=== PATIENT | female | born 1965 | race American Indian/Alaskan Native ===

== ENCOUNTER 2016-10-24 12:05 | Observation (INO) | payer OTHER ==
[2016-10-24 12:05] VITALS: BMI 41.7
[2016-10-24 13:25] LABS: BASO % 0.2 % (0.0-2.0); CHLORIDE 98 mmol/L (98-107); EOS # 0.1 K/uL (0.0-0.7); EOS % 2.2 % (0.0-4.0); HEMATOCRIT 40.9 % (34.0-47.0); LYMPH # 1.2 K/uL (1.0-4.3); LYMPH % 18.2 % (20.0-40.0); MEAN CORPUSCULAR HEMOGLOBIN 27.3 pg (27.0-31.0); MEAN CORPUSCULAR HGB CONC 31.9 g/dL (33.0-37.0); MONO # 0.4 K/uL (0.0-0.8); MONO % 6.1 % (0.0-10.0); NRBC % 0.1 % (0.0-2.0); RED CELL DISTRIBUTION WIDTH 15.6 % (11.5-14.5); WHITE BLOOD COUNT 6.7 K/uL (4.8-10.8)
[2016-10-24 13:26] LABS: MEAN CELL VOLUME 85.7 fL (81.0-99.0); SODIUM 138 mmol/L (132-148)
[2016-10-24 13:28] LABS: ALKALINE PHOSPHATASE 94 U/L (38-126); AST/SGOT 22 U/L (14-36); BILIRUBIN,TOTAL 0.6 mg/dL (0.2-1.3); CARBON DIOXIDE 28 mmol/L (22-30); GFR AFRICAN-AMERICAN > 60; TOTAL PROTEIN 7.5 g/dL (6.3-8.3)
[2016-10-24 13:29] LABS: ALT/SGPT 29 U/L (9-52); BLOOD UREA NITROGEN 10 mg/dL (7-17); CALCIUM 9.9 mg/dl (8.6-10.4); GLUCOSE,RANDOM 316 mg/dL (65-105)
[2016-10-24 13:48] LABS: POTASSIUM 4.3 mmol/L (3.6-5.2)
[2016-10-24] MEDS ORDERED: (Novolin R) Insulin Human Regular 100 units/ml vial IV ONE (13:50)
[2016-10-24 13:53] LABS: RBC URINE 1 /hpf (0-3); URINE BILIRUBIN NEGATIVE (NEGATIVE); URINE BLOOD NEGATIVE (NEGATIVE); URINE COLOR Straw (YELLOW); URINE GLUCOSE (UA) 3+ mg/dL (Normal); URINE KETONE 1+ mg/dL (NEGATIVE); URINE LEUKOCYTE ESTERASE NEG Leu/uL (Negative); URINE PROTEIN NEGATIVE (NEGATIVE); URINE UROBILINOGEN NORMAL mg/dL (0.2-1.0); WBC URINE < 1 /hpf (0-5)
[2016-10-24] MEDS ORDERED: (Novolin R) Insulin Human Regular 100 units/ml vial ONE (14:04)
--- NOTE | 2016-10-24 14:12 | RAD ---
PROCEDURE: CHEST RADIOGRAPH, 1 VIEW HISTORY: cp COMPARISON: Comparison made with prior chest radiograph dated 12/01/2012 FINDINGS: LUNGS: Poor inspiration with low lung volumes, crowded bronchovascular markings and mild bibasilar atelectasis. . Note that the left CP angle is not sharply marginated which may be secondary to large body habitus. PLEURA: No pneumothorax or pleural fluid seen. CARDIOVASCULAR: Normal. OSSEOUS STRUCTURES: No significant abnormalities. VISUALIZED UPPER ABDOMEN: Normal. OTHER FINDINGS: None. IMPRESSION: Poor inspiration with low lung volumes, crowded bronchovascular markings and mild bibasilar atelectasis. . Note that the left CP angle is not sharply marginated which may be secondary to large body habitus.
--- NOTE | 2016-10-24 14:26 | C.PDOC ---
History Of Present Illness 51 y/o female presents to the ED complaining of sharp left-sided chest pain, constant since yesterday. Pain is described as radiating to the abdomen, and worsens with deep inspiration and when lying down. She denies cough, fever, palpitations, vomiting, and diarrhea. PMD: Darwin Germain Time Seen by Provider: 10/24/16 12:42 Chief Complaint (Nursing): Chest Pain History Per: Patient History/Exam Limitations: no limitations Onset/Duration Of Symptoms: Days (x 2) Current Symptoms Are (Timing): Still Present Severity: Mild Exacerbating Factors: Deep Breathing, Other (Lying down) Past Medical History Reviewed: Historical Data, Nursing Documentation, Vital Signs Vital Signs: Last Vital Signs Temp 98 F 10/26/16 15:15 Pulse 81 10/26/16 15:15 Resp 20 10/26/16 15:15 BP 102/65 10/26/16 15:15 Pulse Ox 97 10/26/16 15:15 - Medical History PMH: HTN Family History: States: No Known Family Hx - Social History Hx Alcohol Use: No Hx Substance Use: No - Immunization History Hx Tetanus Toxoid Vaccination: No Hx Influenza Vaccination: Yes Hx Pneumococcal Vaccination: No Review Of Systems Except As Marked, All Systems Reviewed And Found Negative. Constitutional: Negative for: Fever Cardiovascular: Positive for: Chest Pain (Left-sided, constant). Negative for: Palpitations Respiratory: Negative for: Cough, Shortness of Breath Gastrointestinal: Negative for: Nausea, Vomiting, Abdominal Pain, Diarrhea Skin: Negative for: Rash Physical Exam - Physical Exam Appears: Well, Non-toxic, Other (Mild pain, speaking in full sentences) Skin: Normal Color, Warm, Dry Eye(s): bilateral: Normal Inspection Oral Mucosa: Moist Neck: Supple Chest: Symmetrical Cardiovascular: Rhythm Regular, No Murmur Respiratory: Normal Breath Sounds, No Rales, No Rhonchi, No Wheezing Gastrointestinal/Abdominal: Bowel Sounds, Soft, Tenderness (tenderness at the epigastric and LUQ area), No Guarding, No Rebound, Other ((-) Frias's) Back: Normal Inspection, No CVA Tenderness Extremity: Normal ROM, No Pedal Edema, No Deformity Neurological/Psych: Oriented x3 Gait: Steady ED Course And Treatment - Laboratory Results Result Diagrams: 10/24/16 13:09 10/24/16 13:09 ECG: Interpreted By Me, Viewed By Me Interpretation Of ECG: Normal Sinus Rhythm with Left axis deviation, no acute ST /T changes. O2 Sat by Pulse Oximetry: 99 (RA) Pulse Ox Interpretation: Normal - Radiology CXR: Viewed By Me, Read By Radiologist CXR Interpretation: Yes: Other (IMPRESSION: Poor inspiration with low lung volumes, crowded bronchovascular markings and mild bibasilar atelectasis. Note that the left CP angle is not sharply marginated which may be secondary to large body habitus.) - Other Rad ABD XRAY X-Ray: Interpreted by Me, Viewed By Me (no air fluid levels) Progress Note: 12:54. Initial Plan: Blood work, EKG, and CXR ordered and reviewed. Patient given IV NS bolus IV pepcid, IV zofran and IV insulin. Pending reevaluation and disposition. - Physician Consult Information Physician Contacted: Kera Gallardo Outcome Of Conversation: Discussed patient with Dr. Reinier Gallardo, he agrees with admission for chest pain r/o ACS, hypoglycemia. Disposition - Disposition Disposition: HOSPITALIZED Disposition Time: 14:29 Condition: STABLE - Clinical Impression Clinical Impression: Hypoglycemia, Chest pain - Scribe Statement The provider has reviewed the documentation as recorded by the Scribe Madhavi Kahn All medical record entries made by the Scribe were at my direction and personally dictated by me. I have reviewed the chart and agree that the record accurately reflects my personal performance of the history, physical exam, medical decision making, and the department course for this patient. I have also personally directed, reviewed, and agree with the discharge instructions and disposition. Decision To Admit - Pt Status Changed To: Hospital Disposition Of: Observation - . Bed Request Type: Telemetry Admitting Physician: Kera Gallardo Patient Diagnosis: Chest pain, Hypoglycemia
[2016-10-24] MEDS ORDERED: Magnesium Citrate Oral SOL (300 ml) PO ONE ×2 (16:11→17:45)
--- NOTE | 2016-10-24 16:24 | RAD ---
HISTORY: ABDOMINAL DISTENSION COMPARISON: No prior. FINDINGS: BOWEL: Unremarkable abdominal bowel gas pattern. No evidence of bowel obstruction. No hepatic or splenic enlargement. No masses or abnormal calcifications. No free intraperitoneal air. BONES: Normal. OTHER FINDINGS: None. IMPRESSION: No evidence of bowel obstruction.
--- NOTE | 2016-10-24 18:54 | CP.PCM.HP ---
Past Patient History - Past Social History Smoking Status: Never Smoked - CARDIAC Hx Hypertension: Yes - ENDOCRINE/METABOLIC Hx Endocrine Disorders: Yes Hx Diabetes Mellitus Type 2: Yes - HEMATOLOGICAL/ONCOLOGICAL Hx Blood Disorders: Yes Other/Comment: UTERINE CANCER - PSYCHIATRIC Hx Substance Use: No - SURGICAL HISTORY Hx Surgeries: Yes Hx Section: Yes Hx Hysterectomy: Yes - ANESTHESIA Hx Anesthesia: Yes Hx Anesthesia Reactions: No Hx Malignant Hyperthermia: No Meds Allergies/Adverse Reactions: Allergies Allergy/AdvReac Type Severity Reaction Status Date / Time ibuprofen [From Motrin] Allergy DIZZINESS Verified 10/24/16 12:17 Penicillins Allergy ITCHING Verified 10/24/16 12:17 Physical Exam - Constitutional Appears: Well - Head Exam Head Exam: ATRAUMATIC, NORMAL INSPECTION, NORMOCEPHALIC - Eye Exam Eye Exam: EOMI, Normal appearance, PERRL Pupil Exam: NORMAL ACCOMODATION, PERRL - ENT Exam ENT Exam: Mucous Membranes Moist, Normal Exam - Neck Exam Neck exam: Positive for: Normal Inspection - Respiratory Exam Respiratory Exam: Decreased Breath Sounds - Cardiovascular Exam Cardiovascular Exam: REGULAR RHYTHM, +S1, +S2 - GI/Abdominal Exam GI & Abdominal Exam: Diminished Bowel Sounds, Soft - Rectal Exam Rectal Exam: Deferred Results - Vital Signs Recent Vital Signs: Last Vital Signs Temp 97.9 F 10/24/16 17:21 Pulse 80 10/24/16 17:21 Resp 18 10/24/16 17:21 BP 133/85 10/24/16 17:21 Pulse Ox 97 10/24/16 17:21 - Labs Result Diagrams: 10/24/16 13:09 10/24/16 13:09 Labs: Laboratory Results - last 24 hr 10/24/16 15:53 POC Glucose (mg/dL) 267 H
[2016-10-24] MEDS ORDERED: Pneumococcal 23-Valent Vaccine IM ONE (20:09)
[2016-10-24] MEDS ORDERED: Influenza Virus Vaccine 45 mcg/0.5 ml Syr IM ONE (20:09)
--- NOTE | 2016-10-25 07:29 | CP.PCM.PN ---
Objective - Vital Signs/Intake and Output Vital Signs (last 24 hours): Temp Pulse Resp BP Pulse Ox 98.2 F 95 H 18 94/53 L 100 10/24/16 23:58 10/24/16 23:58 10/24/16 23:58 10/24/16 23:58 10/24/16 23:58 Intake and Output: 10/25/16 10/25/16 06:59 18:59 Intake Total 560 Balance 560 - Medications Medications: Current Medications Aspirin (Aspirin Chewable) 81 mg PO DAILY [facility] Glyburide (Micronase) 5 mg PO DAILY [facility] Hydrochlorothiazide (Microzide) 12.5 mg PO DAILY [facility] Losartan Potassium (Cozaar) 100 mg PO DAILY [facility] Metformin HCl (Glucophage) 1,000 mg PO BID [facility] Last Admin: 10/24/16 18:07 Dose: 1,000 mg Pantoprazole Sodium (Protonix Ec Tab) 40 mg PO DAILY [facility] Rosuvastatin Calcium (Crestor) 5 mg PO HS [facility] Last Admin: 10/24/16 22:10 Dose: 5 mg - Labs Labs: PT 11.0 SECONDS (9.7-12.2) 10/24/16 13:09 INR 1.0 10/24/16 13:09 APTT 31 SECONDS (21-34) 10/24/16 13:09
--- NOTE | 2016-10-25 07:45 | CP.PCM.CON ---
History of Present Illness - History of Present Illness History of Present Illness: consultation request for evaluation of chest pain HPI: 51-year-old -[place] female with past medical history significant for hypertension dyslipidemia and diabetes mellitus presenting with complaints of sharp left-sided chest pain. According to the patient she described the pain as intermittent in nature worse with movement associated with mild shortness of breath. She started having symptoms last Monday and got progressively worse over the weekend for which she came to the emergency room. Initially she felt the pain would resolve on its own but because the intensity was getting worse she got concerned and came to the emergency room. Review of Systems - Review of Systems All systems: reviewed and no additional remarkable complaints except - Constitutional Constitutional: As Per HPI - EENT Eyes: As Per HPI Ears: As Per HPI Nose/Mouth/Throat: As Per HPI - Breasts Breasts: As Per HPI - Cardiovascular Cardiovascular: As Per HPI, Chest Pain, Chest Pain at Rest, Chest Pain with Activity, Dyspnea - Respiratory Respiratory: As Per HPI - Gastrointestinal Gastrointestinal: As Per HPI - Genitourinary Genitourinary: As Per HPI - Reproductive: Female Reproductive:Female: As Per HPI - Menstruation Menstruation: As Per HPI - Musculoskeletal Musculoskeletal: As Per HPI - Integumentary Integumentary: As Per HPI - Neurological Neurological: As Per HPI - Psychiatric Psychiatric: As Per HPI - Endocrine Endocrine: As Per HPI - Hematologic/Lymphatic Hematologic: As Per HPI Past Patient History - Past Medical History & Family History Past Medical History?: Yes Pertinent Family History: positive for hypertension and diabetes mellitus - Past Social History Smoking Status: Never Smoked - CARDIAC Hx Hypertension: Yes - PULMONARY Hx Respiratory Disorders: No - NEUROLOGICAL Hx Neurological Disorder: No - HEENT Hx HEENT Problems: No - RENAL Hx Chronic Kidney Disease: No - ENDOCRINE/METABOLIC Hx Endocrine Disorders: Yes Hx Diabetes Mellitus Type 2: Yes - HEMATOLOGICAL/ONCOLOGICAL Hx Blood Disorders: Yes Other/Comment: UTERINE CANCER - INTEGUMENTARY Hx Dermatological Problems: No - MUSCULOSKELETAL/RHEUMATOLOGICAL Hx Musculoskeletal Disorders: No Hx Falls: No - GASTROINTESTINAL Hx Gastrointestinal Disorders: No - GENITOURINARY/GYNECOLOGICAL Hx Genitourinary Disorders: No - PSYCHIATRIC Hx Substance Use: No - SURGICAL HISTORY Hx Surgeries: Yes Hx Section: Yes Hx Hysterectomy: Yes - ANESTHESIA Hx Anesthesia: Yes Hx Anesthesia Reactions: No Hx Malignant Hyperthermia: No Meds Home Medications: Home Medication List Medication Instructions Recorded Confirmed Type Aspirin [Aspirin Chewable] 81 mg PO DAILY #30 10/26/16 Rx Metoprolol Succinate XL [Toprol XL] 12.5 mg PO BRK #30 tab 10/26/16 Rx traMADol [Ultram] 50 mg PO Q6 PRN #10 tab 10/26/16 Rx Allergies/Adverse Reactions: Allergies Allergy/AdvReac Type Severity Reaction Status Date / Time ibuprofen [From Motrin] Allergy DIZZINESS Verified 10/24/16 12:17 Penicillins Allergy ITCHING Verified 10/24/16 12:17 - Medications Medications: Current Medications Aspirin (Aspirin Chewable) 81 mg PO DAILY [facility] Glyburide (Micronase) 5 mg PO DAILY [facility] Hydrochlorothiazide (Microzide) 12.5 mg PO DAILY [facility] Losartan Potassium (Cozaar) 100 mg PO DAILY [facility] Metformin HCl (Glucophage) 1,000 mg PO BID [facility] Last Admin: 10/24/16 18:07 Dose: 1,000 mg Pantoprazole Sodium (Protonix Ec Tab) 40 mg PO DAILY [facility] Rosuvastatin Calcium (Crestor) 5 mg PO HS [facility] Last Admin: 10/24/16 22:10 Dose: 5 mg Physical Exam - Constitutional Appears: Well - Head Exam Head Exam: ATRAUMATIC, NORMAL INSPECTION, NORMOCEPHALIC - Eye Exam Eye Exam: EOMI, Normal appearance, PERRL Pupil Exam: NORMAL ACCOMODATION, PERRL - ENT Exam ENT Exam: Mucous Membranes Moist, Normal Exam - Neck Exam Neck exam: Positive for: Normal Inspection - Respiratory Exam Respiratory Exam: Clear to Auscultation Bilateral, NORMAL BREATHING PATTERN - Cardiovascular Exam Cardiovascular Exam: REGULAR RHYTHM, +S1, +S2, Systolic Murmur - GI/Abdominal Exam GI & Abdominal Exam: Normal Bowel Sounds, Soft. absent: Tenderness - Extremities Exam Extremities exam: Positive for: normal inspection - Back Exam Back exam: NORMAL INSPECTION - Neurological Exam Neurological exam: Alert, CN II-XII Intact, Normal Gait, Oriented x3, Reflexes Normal - Psychiatric Exam Psychiatric exam: Normal Affect, Normal Mood - Skin Skin Exam: Dry, Intact, Normal Color, Warm Results - Vital Signs Recent Vital Signs: Last Vital Signs Temp 98.2 F 10/24/16 23:58 Pulse 95 H 10/24/16 23:58 Resp 18 10/24/16 23:58 BP 94/53 L 10/24/16 23:58 Pulse Ox 100 10/24/16 23:58 - Labs Result Diagrams: 10/24/16 13:09 10/24/16 13:09 Labs: Laboratory Results - last 24 hr 10/24/16 10/24/16 10/25/16 15:53 20:10 01:06 POC Glucose (mg/dL) 267 H Total Creatine Kinase 76 65 CK-MB (Mass) 0.52 0.41 Troponin I, Quant < 0.0120 < 0.0120 Assessment & Plan (1) Chest pain at rest Assessment and Plan: etiology ? CAD vs. MSK plan for stress test due to intermediate pretest probability for CAD keep pt on asa, bb, statins Status: Acute (2) SOB (shortness of breath) Assessment and Plan: etiology ? URI vs. diastolic CHF .vs CAD SADIE Status: Acute (3) HTN (hypertension) Assessment and Plan: cont BB and ACEi Status: Acute
[2016-10-25 07:47] VITALS: RESP 20
[2016-10-25] MEDS ORDERED: Pantoprazole 40 mg EC Tab PO SCH (10:00)
[2016-10-25] MEDS: Pantoprazole 40 mg EC Tab PO SCH (13:23)
--- NOTE | 2016-10-25 15:58 | CP.PCM.PN ---
Subjective - Date & Time of Evaluation Date of Evaluation: 10/25/16 Time of Evaluation: 10:40 - Subjective Subjective: clinically same Objective - Vital Signs/Intake and Output Vital Signs (last 24 hours): Temp Pulse Resp BP Pulse Ox 97.9 F 80 20 113/77 97 10/25/16 07:43 10/25/16 08:30 10/25/16 07:43 10/25/16 07:43 10/25/16 07:43 Intake and Output: 10/25/16 10/25/16 06:59 18:59 Intake Total 560 180 Balance 560 180 - Medications Medications: Current Medications Aspirin (Aspirin Chewable) 81 mg PO DAILY [facility] Last Admin: 10/25/16 13:21 Dose: 81 mg Glyburide (Micronase) 5 mg PO DAILY [facility] Last Admin: 10/25/16 13:22 Dose: 5 mg Hydrochlorothiazide (Microzide) 12.5 mg PO DAILY [facility] Last Admin: 10/25/16 13:24 Dose: 12.5 mg Losartan Potassium (Cozaar) 100 mg PO DAILY [facility] Last Admin: 10/25/16 13:22 Dose: 100 mg Metformin HCl (Glucophage) 1,000 mg PO BID [facility] Last Admin: 10/25/16 13:23 Dose: 1,000 mg Pantoprazole Sodium (Protonix Ec Tab) 40 mg PO DAILY [facility] Last Admin: 10/25/16 13:23 Dose: 40 mg Rosuvastatin Calcium (Crestor) 5 mg PO HS [facility] Last Admin: 10/24/16 22:10 Dose: 5 mg - Labs Labs: PT 11.0 SECONDS (9.7-12.2) 10/24/16 13:09 INR 1.0 10/24/16 13:09 APTT 31 SECONDS (21-34) 10/24/16 13:09 - Constitutional Appears: Well - Head Exam Head Exam: ATRAUMATIC, NORMAL INSPECTION, NORMOCEPHALIC - Eye Exam Eye Exam: EOMI, Normal appearance, PERRL Pupil Exam: NORMAL ACCOMODATION, PERRL - ENT Exam ENT Exam: Mucous Membranes Moist, Normal Exam - Neck Exam Neck Exam: Full ROM, Normal Inspection. absent: Lymphadenopathy - Respiratory Exam Respiratory Exam: Decreased Breath Sounds - Cardiovascular Exam Cardiovascular Exam: REGULAR RHYTHM, +S1, +S2 - GI/Abdominal Exam GI & Abdominal Exam: Soft, Diminished Bowel Sounds - Rectal Exam Rectal Exam: Deferred
[2016-10-25] MEDS: (Novolin R) Insulin Human Regular 100 units/ml vial SC SCH (22:26)
[2016-10-26] MEDS: (Novolin R) Insulin Human Regular 100 units/ml vial SC SCH ×2 (09:12→13:26)
[2016-10-26] MEDS: Pantoprazole 40 mg EC Tab PO SCH (09:12)
[2016-10-26 15:18] VITALS: BP 102/65; PULSE 81; TEMP 98
--- NOTE | 2016-10-26 17:29 | CP.PCM.PN ---
Subjective - Date & Time of Evaluation Date of Evaluation: 10/26/16 Time of Evaluation: 14:00 - Subjective Subjective: [employer] BLASTING PROGRESS NOTE Pateint seen today denies any chest pain, sob, palpitations, c/o mild back pain 51 yr old female admitted for chest pain . troponin x 3 negative s/p stress test Dr. Barrientos seen today, cleared for discharge home today with aspirin, statin an d metoprolol and f/u with his office in 1 week d/w Dr. Reinier marroquin , cleared for discharge home today Discharge plan discussed with patient , who understands an d agrees with plan Patient instructed to returns to ED if symptoms return or any other concerning symptoms Objective - Vital Signs/Intake and Output Vital Signs (last 24 hours): Temp Pulse Resp BP Pulse Ox 98 F 81 20 102/65 97 10/26/16 15:15 10/26/16 15:15 10/26/16 15:15 10/26/16 15:15 10/26/16 15:15 Intake and Output: 10/26/16 10/26/16 06:59 18:59 Intake Total 400 Balance 400 - Medications Medications: Current Medications Aspirin (Aspirin Chewable) 81 mg PO DAILY [facility] Last Admin: 10/26/16 09:11 Dose: 81 mg Glyburide (Micronase) 5 mg PO DAILY [facility] Last Admin: 10/26/16 09:11 Dose: 5 mg Hydrochlorothiazide (Microzide) 12.5 mg PO DAILY [facility] Last Admin: 10/26/16 09:12 Dose: 12.5 mg Insulin Human Regular (Novolin R) 0 unit SC ACHS RADHA PRN Reason: Protocol Last Admin: 10/26/16 13:26 Dose: 4 unit Losartan Potassium (Cozaar) 100 mg PO DAILY [facility] Last Admin: 10/26/16 09:12 Dose: 100 mg Metformin HCl (Glucophage) 1,000 mg PO BID [facility] Last Admin: 10/26/16 09:11 Dose: 1,000 mg Pantoprazole Sodium (Protonix Ec Tab) 40 mg PO DAILY [facility] Last Admin: 10/26/16 09:12 Dose: 40 mg Rosuvastatin Calcium (Crestor) 5 mg PO HS [facility] Last Admin: 10/25/16 22:09 Dose: 5 mg Tramadol HCl (Ultram) 50 mg PO Q6 PRN PRN Reason: Pain, moderate (4-7) Last Admin: 10/26/16 09:29 Dose: 50 mg - Labs Labs: PT 11.0 SECONDS (9.7-12.2) 10/24/16 13:09 INR 1.0 10/24/16 13:09 APTT 31 SECONDS (21-34) 10/24/16 13:09
--- NOTE | 2016-10-27 00:12 | CP.PCM.PN ---
Subjective - Date & Time of Evaluation Date of Evaluation: 10/26/16 Time of Evaluation: 17:30 - Subjective Subjective: feels chest pain improving discussed stress test results with her Objective - Vital Signs/Intake and Output Vital Signs (last 24 hours): Temp Pulse Resp BP Pulse Ox 98 F 81 20 102/65 97 10/26/16 15:15 10/26/16 15:15 10/26/16 15:15 10/26/16 15:15 10/26/16 15:15 Intake and Output: 10/26/16 10/27/16 18:59 06:59 Intake Total 400 Balance 400 - Labs Labs: PT 11.0 SECONDS (9.7-12.2) 10/24/16 13:09 INR 1.0 10/24/16 13:09 APTT 31 SECONDS (21-34) 10/24/16 13:09 - Constitutional Appears: Well - Head Exam Head Exam: ATRAUMATIC, NORMAL INSPECTION, NORMOCEPHALIC - Eye Exam Eye Exam: EOMI, Normal appearance, PERRL Pupil Exam: NORMAL ACCOMODATION, PERRL - ENT Exam ENT Exam: Mucous Membranes Moist, Normal Exam - Neck Exam Neck Exam: Full ROM, Normal Inspection. absent: Lymphadenopathy - Respiratory Exam Respiratory Exam: Clear to Ausculation Bilateral, NORMAL BREATHING PATTERN - Cardiovascular Exam Cardiovascular Exam: REGULAR RHYTHM, +S1, +S2, Murmur - GI/Abdominal Exam GI & Abdominal Exam: Soft, Normal Bowel Sounds. absent: Tenderness - Extremities Exam Extremities Exam: Full ROM, Normal Capillary Refill, Normal Inspection. absent : Joint Swelling, Pedal Edema - Back Exam Back Exam: NORMAL INSPECTION - Neurological Exam Neurological Exam: Alert, Awake, CN II-XII Intact, Normal Gait, Oriented x3 - Psychiatric Exam Psychiatric exam: Normal Affect, Normal Mood - Skin Skin Exam: Dry, Intact, Normal Color, Warm Assessment and Plan (1) Chest pain at rest Assessment & Plan: etiology most likely MSK stress test mild lateral wall defect - low probability for significant CAD keep pt on asa, bb, statins outpt f/u in 1-2 weeks Status: Acute (2) SOB (shortness of breath) Status: Acute (3) HTN (hypertension) Assessment & Plan: cont bb and acei Status: Acute
--- NOTE | 2016-10-27 01:43 | CARD ---
APPROVED REPORT Protocol: CHRISTOPHER Test Type: NUCLEAR STRESS Test Indications: CP Target HR: 167 bpm Resting ECG: normal Resting Heart Rate: 88 bpm Resting Blood Pressure: 128/80mmHg submaximum (85%): 142 bpm TEST SUMMARY [id number]/.0. PRETESTWARM-[id number]/80.0. EXERCISESTAGE [id number]/80.0. EXERCISESTAGE [id number]/80.0. [id number]. POST EXERCISE Reason for Termination: Fatigue Target HR: No Max HR: 157 bpm 94% of Maximum Predicted HR: 167 bpm Exercise duration: 04:26 min:sec, 2 Stage Exercise capacity: 7.0METs Max Blood Pressure: 148/80mmHg Blood Pressure response to exercise: normal resting BP - appropriate response Heart Rate response to exercise: appropriate Chest Pain: No, none Angina index: 0 Arrhythmia: No, none ST Change: No, none Deviation: 0 mm EXAM: Myocardial Perfusion STRESS/REST Imaging Protocol The imaging protocol used to acquire images was Stress Tc-99m/rest Tc-99m 1 day Stress Spect myocardial perfusion imaging was performed in supine position 41 minutes following the injection of 12.8 mCi of Tc-99 Myoview. Gated Rest Spect was performed 40 minutes after intravenous 30.5 mCi Tc-99 Myoview injection. The images were gated to evaluate regional wall motion and calculate ventricular ejection fraction.Images were reconstructed using backfilter projection method in short horizontal and verticle long axis. Spect slices were generated. RESTING DATA EDV73.74vnAE3.30L/min ESV24.00mlMyocardial Mfmg727.00g Av. Heart Rate86.00bpm EF67.00% STRESS DATA EDV81.10ujJP6.20L/min ESV21.00mlMyocardial Kkja228.00g EF74.00% Regional WT score at stress:2.00 Regional WM score at stress:0.00 Summed WT score at stress:15.00 Av. Heart Rate87.00bpmSummed WM score at stress:3.00 Study quality was fair. Left Ventricular size was Normal at Rest and Stress. LV Perfusion 1 Perfusion Defect Location: lateral Perfusion Defect Size: Small (1-2 segments) Perfusion Defect Severity: Mild Type of Perfusion Defect: Partially Reversible TCD/TID: 1.14 LV Perf. Quant 17 Seg. SSS4.00 17 Seg. SRS2.00 17 Seg. SDS2.00 Stress Defect Extent (% LAD)1.90Rest Defect Extent (% LAD)0.00Rev. Defect Extent (% LAD)1.90 Stress Defect Extent (% LCX)22.50Rest Defect Extent (% LCX)2.50Rev. Defect Extent (% LCX)21.30 Stress Defect Extent (% RCA)0.00Rest Defect Extent (% RCA)0.00Rev. Defect Extent (% RCA)0.00 Stress Defect Extent (% MCKAY)6.50Rest Defect Extent (% MCKAY)0.90Rev. Defect Extent (% MCKAY)6.10 Other Information Quality:Fair Overall Exercise Capacity: Poor IMPRESSION Normal Myocardial Perfusion exercise stress study Global LV Function: Normal Stress Test Summary: Nondiagnostic LV Perfusion Summary: Equivocal Metabolism/Perfusion Defects: lateral wall partially reversible defect most likely secondary to motion artifact Conclusion 1. - Motion artifact with lateral wall partially reversible defect 2. - Normal LVEF
[2016-10-28 14:33] VITALS: O2SAT 99
== END 2016-10-26 17:05 | disposition home or self-care (01) ==
LOC: C.ER 12:05 → C.9E 14:29 → C.5T 16:41
PROVIDERS: ADMIT Internal Medicine Nephrology; ATTEND Internal Medicine Nephrology
DX: R07.9 Chest pain, unspecified (principal); R06.02 Shortness of breath; I10 Essential (primary) hypertension; E11.9 Type 2 diabetes mellitus without complications; Z85.42 Personal history of malignant neoplasm of other parts of uterus
CPT/HCPCS: 36415; 71010; 74020; 80053; 81001; 82550; 82553; 82948; 84484; 84703; 85025; 85610; 85730; 96374; 99285; G0378; J1885; J2405